=== PATIENT | female | born 1995 | race African-American/Black ===

== ENCOUNTER 2024-02-17 20:46 | Emergency (ER) | payer MEDICAID ==
[~2024-02-17] VITALS: Ht 167.6 cm; Wt 96.3 kg
[2024-02-17 21:11] VITALS: BP 113/71; TEMP 99.6
[2024-02-17] MEDS: acetaminophen 325mg tablet PO ONE (22:38)
[2024-02-17 23:12] VITALS: PULSE 78; RESP 18; O2SAT 99
== END 2024-02-17 23:15 | disposition home or self-care (01) ==
LOC: ER 20:46
DX: B34.9 Viral infection, unspecified (principal); R53.1 Weakness; R53.83 Other fatigue; R09.81 Nasal congestion; Z20.822 Contact with and (suspected) exposure to COVID-19
CPT/HCPCS: 36415; 87502; 87503; 87634; 87811; 99283